=== PATIENT | male | born 1955 | race Two or more races ===

== ENCOUNTER → 2025-01-24 | Outpatient (CLI) | payer MEDICARE, MEDICAID, SELFPAY ==
[2025-01-24 10:08] LABS: Glucose Estimated Average 123 mg/dL (80-131); Hemoglobin A1C 5.9 % Hgb (4.8-6.0)
[2025-01-24 10:17] LABS: Anion Gap 7 (7-16); BUN/Creatinine Ratio 37 Ratio (12-20); Blood Urea Nitrogen 44 mg/dL (9-23); Calcium 8.8 mg/dL (8.3-10.6); Carbon Dioxide 30.1 mMol/L (20.0-31.0); Chloride 108 mMol/L (98-107); Creatinine (Component) 1.2 mg/dL (0.6-1.3); Glucose 87 mg/dL (74-106); Magnesium 2.1 mg/dL (1.6-2.6); Osmolality,Calculated 298 (275-295); Sodium 145 mMol/L (136-145); eGFR > 60 See Note
== END | disposition home or self-care (01) ==
PROVIDERS: PCP Internal Medicine Cardiovascular Disease; Referring Provider Internal Medicine Cardiovascular Disease; Visit Provider Internal Medicine Cardiovascular Disease
DX: I50.9 Heart failure, unspecified (principal); E78.5 Hyperlipidemia, unspecified
CPT/HCPCS: 36415; 80048; 83036; 83735

== ENCOUNTER → 2025-02-06 | Outpatient (CLI) | payer MEDICARE, MEDICAID, SELFPAY ==
[2025-02-06 10:19] LABS: Anion Gap 3 (7-16); BUN/Creatinine Ratio 34 Ratio (12-20); Blood Urea Nitrogen 61 mg/dL (9-23); Calcium 8.8 mg/dL (8.3-10.6); Carbon Dioxide 27.6 mMol/L (20.0-31.0); Chloride 112 mMol/L (98-107); Creatinine (Component) 1.8 mg/dL (0.6-1.3); Glucose 91 mg/dL (74-106); Magnesium 2.2 mg/dL (1.6-2.6); Osmolality,Calculated 302 (275-295); Potassium 4.4 mMol/L (3.4-5.1); Sodium 143 mMol/L (136-145); eGFR 40 See Note
== END | disposition home or self-care (01) ==
LOC: COPL 09:05
PROVIDERS: PCP Family Medicine; Referring Provider Internal Medicine Cardiovascular Disease; Visit Provider Internal Medicine Cardiovascular Disease
DX: I50.41 Acute combined systolic (congestive) and diastolic (congestive) heart failure (principal); M79.89 Other specified soft tissue disorders
CPT/HCPCS: 36415; 80048; 83735

== ENCOUNTER 2025-03-19 10:40 | Emergency (ER) | payer MEDICARE, MEDICAID, SELFPAY ==
[2025-03-19 10:45] VITALS: BMI 22.3
[2025-03-19 11:02] VITALS: BP 165/85; PULSE 70; RESP 18; TEMP 36.5; O2SAT 98
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
[2025-03-19 12:36] LABS: Basophils % (Auto) 1 % (0-2.5); Eosinophils # (Auto) 0.1 Thou/mm3 (0.0-0.5); Eosinophils % (Auto) 4 % (0-10); Hematocrit 33.5 % (41.0-53.0); Hemoglobin 11.4 g/dL (13.5-16.0); Immature Granulocytes % (Auto) 0 % (0-0); Lymphocytes # (Auto) 0.8 Thou/mm3 (1.0-4.8); Lymphocytes % (Auto) 26 % (10-50); Mean Corpuscular Hemoglobin 29.9 pg (25.0-35.0); Mean Corpuscular Volume 88 fL (80-100); Monocytes # (Auto) 0.3 Thou/mm3 (0.0-0.8); Monocytes % (Auto) 9 % (0-12); Neutrophils % (Auto) 61 % (37-80); Nucleated Red Blood Cell % 0 /100 WBC (0); Platelet Count 255 Thou/mm3 (140-440); RDW Standard Deviation 39.9 fL (35.1-43.9); Red Blood Count 3.81 Miln/mm3 (4.50-5.90); White Blood Count 3.2 Thou/mm3 (3.8-10.6)
[2025-03-19 12:39] LABS: Alanine Aminotransferase 29 U/L (10-49); Albumin, Serum 3.7 gm/dL (3.4-4.8); Albumin/Globulin Ratio 1.4 (1.2-2.2); Alkaline Phosphatase 70 U/L (46-116); Anion Gap 8 (7-16); Aspartate Amino Transferase 26 U/L (0-34); BUN/Creatinine Ratio 29 Ratio (12-20); Bilirubin,Total 0.5 mg/dL (0.3-1.2); Blood Urea Nitrogen 46 mg/dL (9-23); Calcium 8.9 mg/dL (8.3-10.6); Calcium (Corrected) 9.1 mg/dL (8.5-10.1); Carbon Dioxide 26.5 mMol/L (20.0-31.0); Chloride 102 mMol/L (98-107); Creatinine (Component) 1.6 mg/dL (0.6-1.3); Estimated Creatinine Clearance 34.8 mL/min (>60); Globulin 2.6 gm/dL (2.3-3.5); Glucose 96 mg/dL (74-106); Osmolality,Calculated 283 (275-295); Potassium 3.9 mMol/L (3.4-5.1); Sodium 136 mMol/L (136-145); Total Protein 6.3 gm/dL (5.7-8.2); eGFR 45 See Note
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
[2025-03-19 22:55] VITALS: BP 191/93; PULSE 71; RESP 20; TEMP 36.6; O2SAT 100
[2025-03-19 23:02] VITALS: BP 176/101; PULSE 70; RESP 18; O2SAT 100
[2025-03-19] MEDS: ACETAMINOPHEN 325 MG TABLET 650 MG PO (23:03)
--- NOTE | 2025-03-19 23:27 | EDNOTE_ITS ---
Emergency Room Addendum Addendum Narrative: 2300: Care assumed from John Nicole NP. Past medical, surgical, social and family history reviewed. Vitals and home medications reviewed. Results and treatment plan discussed. I will assume the care of the patient at this time and will follow the patient, pending social and political studies professor consultation/possible SNF placement. Please refer to the emergency department record for history and examination from initial visit. The patient was placed in ED observation care at 03/19/25 at 2300 hours. The patient was placed in ED observation care because of pending possible SNF placement. The patients past medical history, social history, and family history were reviewed. The plan of care will include serial examinations. 0600: Care signed out to Dr. Banda (emergency physician). Past medical, surgical, social and family history reviewed. Vitals and home medications reviewed. Results and treatment plan discussed. They will assume the care of the patient at this time and will follow the patient, pending possible SNF placement. At this time, observation has ended.
[2025-03-20 00:26] LABS: Collection Type, Urine Catheter
[2025-03-20 01:00] LABS: Bacteria,Urine 4+; Bilirubin,Urine Negative (Negative); Blood,Urine 2+ (Negative); Clarity,Urine Turbid (Clear/Hazy); Color,Urine Lt-Yellow (Lt Yel-Yel); Glucose, Urine 4+ (Negative); Ketones,Urine Negative (Negative); Leukocyte Esterase,Urine Positive (Negative); Nitrite,Urine Positive (Negative); Protein,Urine 3+ (Neg - Trace); RBC,Urine 59 /hpf (0-3); Specific Gravity,Urine 1.012 (1.001-1.035); Squamous Epithelial Cell,Urine < 1 /hpf (0-5); Urobilinogen,Urine Negative mg/dL (0.0-1.0); WBC,Urine 200 /hpf (0-5)
[2025-03-20 01:06] VITALS: BP 162/93; PULSE 65; RESP 18; TEMP 36.7; O2SAT 100
[2025-03-20 01:20] LABS: Alcohol, Urine Negative (Negative); Amphetamine/Methamp Scrn,U Negative (Negative); Barbiturate Screen,Urine Negative (Negative); Benzodiazepines Screen,Urine Negative (Negative); Benzoylecgonine Screen, Ur Negative (Negative); Fentanyl Screen,Urine Negative (Negative); Opiate Screen,Urine Negative (Negative); THC Screen,Urine Negative (Negative)
[2025-03-20 03:12] VITALS: BP 157/89; PULSE 60; RESP 18; TEMP 37; O2SAT 100
[2025-03-20 05:34] VITALS: BP 171/93; PULSE 61; RESP 18; TEMP 37; O2SAT 100
--- NOTE | 2025-03-20 06:23 | PD.EDADDENDU ---
Emergency Room Addendum Addendum Narrative: 0600: Care assumed from Dr. Ellison, the previous shift emergency physician. Past medical, surgical, social and family history reviewed. Vitals and home medications reviewed. I will assume the care of the patient at this time, pending hospice social worker consult for possible SNF placement. Please refer to the emergency department record for history and examination from initial visit.? The patient was placed in ED observation care at 03/20/25 at 0600 hours. The patient was placed in ED observation care because of pending possible SNF placement. The patients past medical history, social history, and family history were reviewed. The plan of care will include serial examinations. Physical exam by me shows patient under no acute distress at this time. 1229: Patient was accepted for placement at [facility]. Patient will be discharged to SNF. 1512: Patient discharged. ED observation care ended at 03/20/2025 at 1512 hours. Diagnosis: - Dementia
--- NOTE | 2025-03-20 07:39 | PC.NURSE ---
Upon assumption of care pt resting w/eyes closed, even rise and fall of chest, VSS on tele. Pt denies any pain or discomfort, in agreement w/poc. Will continue w/poc.
--- NOTE | 2025-03-20 09:02 | PC.CM ---
0902- [facility] Dolores Barbosa spoke with ER medical provider regarding a PT eval for pt for potential SNF placement and provider agreed to place the PT order.
[2025-03-20 10:01] VITALS: BP 159/91; PULSE 64; RESP 18; TEMP 36.4; O2SAT 100
--- NOTE | 2025-03-20 11:17 | PC.SS ---
Addendum entered by LEE Epstein 03/20/25 14:47: SS update: [facility] here to order picker/assembler patient. Samantha at [facility] and bedside nurse updated. Addendum entered by LEE Epstein 03/20/25 14:15: SS update: transportation arranged via [facility] reference number: [id number]. Pending ETA. Addendum entered by LEE Epstein 03/20/25 12:20: SS update: only accepting facility at this time is [facility], presented the accepting facility to patient's son Anthony and he was agreeable. Notified him [facility] declined the patient and he verbalized understanding. Samantha at [facility] was notified patient would be a alf placement and she was agreeable to accepting the patient. Addendum entered by LEE Epstein 03/20/25 11:18: SS update: [facility] Original Note: SS update: sent SNF referral to local facilities via [facility]. Pending response.
[2025-03-20 13:18] VITALS: BP 159/95; PULSE 65; RESP 18; TEMP 36.7; O2SAT 100
--- NOTE | 2025-03-20 15:08 | PC.NURSE ---
[facility] CAME TO PICK PT UP, TUB OF BELONGINGS SENT WITH PT, CALLED FACILITY TO CONFIRM THAT SOMEONE CAN ASSIST [facility] PROCESS CONTROL SPECIALIST AND GET PTS BELONGINGS FROM [facility], THEY CONFIRMED SOMEONE WOULD BE OUTSIDE. THIS RN CALLED FACILITY TO GIVE NURSE TO NURSE, WAS SENT TO VOICEMAIL, VOIC[employer]AIL WAS LEFT W/CALL BACK NUMBER, FOR REPORT.
== END 2025-03-20 15:13 | disposition home or self-care (01) ==
PROVIDERS: Registered Nurse General Practice; Emergency Provider Emergency Medicine
DX: F03.90 Unspecified dementia, unspecified severity, without behavioral disturbance, psychotic disturbance, mood disturbance, and anxiety (principal); Z46.82 Encounter for fitting and adjustment of non-vascular catheter
CPT/HCPCS: 51702; 36415; 80053; 80307; 80320; 81001; 85025; 99284; A9270; G0480